=== PATIENT | male | born 1995 | race Caucasian/White ===

== ENCOUNTER 2018-07-12 09:26 | Emergency (ER) | payer SELFPAY ==
[~2018-07-12] VITALS: Ht 167.6 cm; Wt 63.6 kg
[2018-07-12] MEDS ORDERED: SODIUM CHLORIDE FLUSH 10ML SYR IVF ONE (10:00)
[2018-07-12] MEDS ORDERED: DEXAMETHASONE 4 MG/ML, 1ML IV ONE (10:00)
[2018-07-12] MEDS ORDERED: KETOROLAC 30 MG/1 ML IVPush ONE (10:00)
--- NOTE | 2018-07-12 10:17 | NUR ---
REPORT TO ANNI MORRISSEY PT TO BE TRANSFERRED TO CORE
--- NOTE | 2018-07-12 10:20 | NUR ---
Patient moved to room 26. NAD.
[2018-07-12 10:22] LABS: MEAN CORPUSCULAR HEMOGLOBIN 31.2 pg (27.5-34.5); MEAN CORPUSCULAR HGB CONC 33.6 g/dL (33.2-36.2); MEAN CORPUSCULAR VOLUME 92.9 fL (81-97); MEAN PLATELET VOLUME 7.2 fL (7.4-10.4); PLATELET COUNT 260 x10^3/uL (130-400); RED BLOOD COUNT 5.04 x10^6/uL (4.38-5.82); RED CELL DISTRIBUTION WIDTH 13.4 % (9.4-14.8)
[2018-07-12 10:33] LABS: ALBUMIN 3.9 g/dL (3.4-5.0); ANION GAP 6 mmol/L (5-15); CHLORIDE 106 mmol/L (98-107); CREATININE 0.97 mg/dL (0.7-1.3)
[2018-07-12 10:40] LABS: BASOPHILS # (AUTO) 0.02 x10^3/uL (0-0.1); BASOPHILS % (AUTO) 0 % (0-1); EOSINOPHILS % (AUTO) 0 % (1-7); LYMPHOCYTES # (AUTO) 0.85 x10^3/uL (1-3.4); LYMPHOCYTES % (AUTO) 6 % (22-44); MD SCAN; MONOCYTES # (AUTO) 1.22 x10^3/uL (0.2-0.8); MONOCYTES % (AUTO) 8 % (2-9); NEUTROPHILS # (AUTO) 12.49 x10^3/uL (1.8-6.8); NEUTROPHILS % (AUTO) 86 % (42-75)
[2018-07-12] MEDS ORDERED: DEXAMETHASONE 4 MG/ML, 1ML ONE (10:43)
[2018-07-12] MEDS ORDERED: KETOROLAC 30 MG/1 ML ONE (10:43)
--- NOTE | 2018-07-12 10:57 | NUR ---
IV started and patient medicated. Patient to CT.
[2018-07-12] MEDS ORDERED: ONDANSETRON 2MG/ML, 2ML IVPush ONE (11:00)
[2018-07-12] MEDS ORDERED: morphine SULFATE 10 MG/ML, 1ML IVPush ONE (11:00)
[2018-07-12] MEDS ORDERED: OMNIPAQUE 350 MG/ML, 100ML BOTTLE ONE (11:13)
--- NOTE | 2018-07-12 11:14 | NUR ---
Patient states that pain has improved, but hasn't resolved. Refusing morphine at this time.
[2018-07-12] MEDS ORDERED: SODIUM CHLORIDE 0.9% 1,000ML IVBOLUS ONE (11:30)
[2018-07-12] MEDS ORDERED: HYDROmorphone 1 MG/ML, 1ML INJ IV ONE (11:30)
[2018-07-12] MEDS ORDERED: AMPICILLIN/SULBACTAM 3 GM in SODIUM CHLORIDE 0.9% 100 ML IV ONE (11:30)
[2018-07-12] MEDS ORDERED: MORPHINE SULFATE 4 MG/ML, 1ML ONE (12:10)
[2018-07-12] MEDS ORDERED: ONDANSETRON 2MG/ML, 2ML ONE (12:13)
--- NOTE | 2018-07-12 12:24 | NUR ---
REPORT RC'VD FROM YUNI HUTTON. PT C/O 11/15 THROAT PAIN. MEDICATED PER ORDERS. ABX AND IV BOLUS INFUSING.
[2018-07-12] MEDS ORDERED: BENZOCAINE AEROSOL SPRAY 20%, 60ML TP ONE (12:30)
[2018-07-12] MEDS ORDERED: LIDOCAINE 1%-EPI 1:100K, 20ML SQ ONE (12:30)
[2018-07-12] MEDS ORDERED: BENZOCAINE AEROSOL SPRAY 20%, 60ML ONE (12:36)
[2018-07-12] MEDS ORDERED: LIDOCAINE-MPF 1%, 5ML ONE (12:39)
--- NOTE | 2018-07-12 13:06 | NUR ---
I&D DONE BY ER PA, PT TOLERATED WELL. PT HAS ORAL SUCTION AT BEDSIDE FOR DRAINAGE.
[2018-07-12 13:34] VITALS: BP 114/63
--- NOTE | 2018-07-12 13:35 | NUR ---
PT STATES PAIN DOWN TO 2/10 NOW. NO MORE DRAINAGE FROM MOUTH. D/C INSTRUCTIONS, MEDS, & F/U APPT RV'WD WITH PT, HE VERBALIZES UNDERSTANDING. RX GIVEN X2. PT AMBULATED OUT OF ED WITH FAMILY WITHOUT DIFFICULTY.
== END 2018-07-12 13:48 | disposition home or self-care (01) ==
LOC: ED 13:03
DX: J36 Peritonsillar abscess (principal)
CPT/HCPCS: 36415; 42700; 70491; 80048; 82040; 85025; 86308; 87081; 87880; 96365; 96375; 99284; J0295; J1100; J1885; J2270; J2405; J3490; J7030; Q9967